=== PATIENT | female | born 1935 | race American Indian/Alaskan Native ===

== ENCOUNTER 2017-06-30 00:44 | Inpatient (IN) | payer MEDICARE ==
[2017-06-30 01:55] LABS: BUN/Creatinine Ratio 11; Blood Urea Nitrogen 8 mg/dL (7-17); Calcium 8.7 mg/dL (8.4-10.2); Hemolysis Index 10
[2017-06-30] MEDS ORDERED: NACL 0.9% 1000 ML 1,000 ML IV ONE (01:58)
[2017-06-30] MEDS ORDERED: K-DUR PO ONE (01:59)
[2017-06-30 02:13] LABS: Basophils % (Auto) 0.5 % (0.0-1.8); Eosinophils % (Auto) 0.5 % (0.0-4.3); Hematocrit 54.1 % (30.3-42.9); Hemoglobin 17.2 gm/dl (10.1-14.3); Lymphocytes # (Auto) 2.1 K/mm3 (1.2-5.4); Lymphocytes % (Auto) 25.2 % (13.4-35.0); Mean Corpuscular HGB Conc 32 % (30-34); Mean Corpuscular Hemoglobin 29 pg (28-32); Mean Corpuscular Volume 92 fl (79-97); Monocytes # (Auto) 0.5 K/mm3 (0.0-0.8); Monocytes % (Auto) 6.1 % (0.0-7.3); Platelet Count 141 K/mm3 (140-440); Red Cell Distribution Width 15.4 % (13.2-15.2)
[2017-06-30 02:38] LABS: Bilirubin,Urine NEG (Negative); Blood,Urine NEG (Negative); Color,Urine Straw (Yellow); Nitrite,Urine NEG (Negative); Protein,Urine <15 mg/dL mg/dL (Negative); Urobilinogen,Urine < 2.0 mg/dL (<2.0)
--- NOTE | 2017-06-30 02:45 | Emergency Department Report ---
ED General Adult HPI - General Chief complaint: Hypoglycemia Stated complaint: LOW BLOOD GLUCOSE Time Seen by Provider: 06/30/17 01:51 Source: EMS Mode of arrival: Stretcher Limitations: No Limitations - History of Present Illness Initial comments: 81 year old female with a past medical history diabetes and hypertension presents to the hospital with the patient below glucose 2 today. Patient she had a low glucose at 2:30 PM today. EMS came to the home, Glucose was initially 24 and improved after 25 mg of D50 to 2:31 and therefore patient elected not to comment to the hospital. This evening patient had a repeat episode of alteration in mental status and hypoglycemia. Patient initially was staring off and having difficulty communicating before she became completely unresponsive. Glucose was 30 at home. Patient received an amp of D50 and diamond to 61. Blood glucose 90 in triage. Family states patient has been eating appropriately and typically does not eat much. She did suffer from a stomach virus last week ( multiple family members have similar symptoms). She has not quite been completely feeling well since. No compressive fever, chest pain, shortness of breath, nausea, vomiting, diarrhea. Mild dysuria noted this morning. Patient takes glipizide 5 mg extended release every morning for diabetes. - Related Data Home Medications Medication Instructions Recorded Confirmed Last Taken Amlodipine Besylate/Benazepril 1 each PO DAILY 06/30/17 06/30/17 Unknown [Amlodipine-Benazepril 10-20 mg] Clonidine HCl [Kapvay] 0.1 mg PO QHS 06/30/17 06/30/17 Unknown Rosuvastatin Calcium 10 mg PO QHS 06/30/17 06/30/17 Unknown glipiZIDE [glipiZIDE ER] 5 mg PO QAM 06/30/17 06/30/17 Unknown Allergies Allergy/AdvReac Type Severity Reaction Status Date / Time No Known Allergies Allergy Unverified 06/30/17 01:02 ED Review of Systems ROS: Stated complaint: LOW BLOOD GLUCOSE Other details as noted in HPI Comment: All other systems reviewed and negative Other: Constitutional: No fevers chills or weight loss Eyes: No eye pain visual changes or discharge ENT: No ear pain or throat pain Neck: Denies pain Respiratory: Denies cough wheezing shortness of breath Cardiovascular: Denies chest pain, palpitations, syncope GI: Denies abdominal pain, nausea, vomiting, diarrhea : Denies dysuria Musculoskeletal: Denies back pain Skin: Denies rash, lesions, erythema Neurologic: Denies headache, numbness, weakness Psychiatric: Denies suicidal ideation, hallucinations ED Past Medical Hx - Past Medical History Previous Medical History?: Yes Hx Hypertension: Yes Hx Diabetes: Yes Additional medical history: cataracts - Surgical History Past Surgical History?: No - Social History Smoking Status: Current Every Day Smoker Substance Use Type: None - Medications Home Medications: Home Medications Medication Instructions Recorded Confirmed Last Taken Type Amlodipine Besylate/Benazepril 1 each PO DAILY 06/30/17 06/30/17 Unknown History [Amlodipine-Benazepril 10-20 mg] Clonidine HCl [Kapvay] 0.1 mg PO QHS 06/30/17 06/30/17 Unknown History Rosuvastatin Calcium 10 mg PO QHS 06/30/17 06/30/17 Unknown History glipiZIDE [glipiZIDE ER] 5 mg PO QAM 06/30/17 06/30/17 Unknown History ED Physical Exam - General Limitations: No Limitations - Other Other exam information: General: No limitations, patient is alert in no acute distress Head exam: Atraumatic, normocephalic Eyes exam: Normal appearance, pupils equal reactive to light, extraocular movements intact ENT: Moist mucous membrane, normal oropharynx Neck exam: Normal inspection, full range of motion, no meningismus nontender Respiratory exam: Clear to auscultation bilateral, no wheezes, rales, crackles Cardiovascular: Normal rate and rhythm, normal heart sounds Abdomen: Soft, nondistended, and nontender, with normal bowel sounds, no rebound, or guarding Extremity: Full range of motion normal inspection no deformity Back: Normal Inspection, full range of motion, no tenderness Neurologic: Alert, oriented x3, cranial nerves intact, no motor or sensory deficit Psychiatric: normal affect, normal mood Skin: Warm, dry, intact ED Course Vital Signs 06/30/17 01:26 Temperature 97.7 F Pulse Rate 75 Respiratory 25 H Rate Blood Pressure 141/66 [Left] O2 Sat by Pulse 100 Oximetry - Reevaluation(s) Reevaluation #1: 06/30/17 03:37 Glucose rechecked at this time and currently 46 even after receiving previous D 50 and eating a half of a peanut butter sandwich. Patient is alert and oriented. 1 amp of D50 and patient discharged to eat the other half of the sandwich and given juice. Hospitalist informed and D5 half-normal ordered a 75 mL per hour per his ED Medical Decision Making - Lab Data Result diagrams: 06/30/17 01:17 06/30/17 01:17 - Medical Decision Making hypoglycemia x 2 today oral glipized 5mg q am glucose dropped again after d50 and food intake in ed no signs of infection d50 given in ed, d5 1/2 NS initiated will admit for obs and possible medication adjustment hypokalemia potassium supplemented - Differential Diagnosis medication reaction, infection, poor by mouth intake Critical Care Time: No Critical care attestation.: If time is entered above; I have spent that time in minutes in the direct care of this critically ill patient, excluding procedure time. ED Disposition Clinical Impression: Hypoglycemia, Diabetes mellitus, type 2, Hypokalemia Disposition: OP ADMIT IP TO THIS HOSP Is pt being admited?: Yes Condition: Stable Time of Disposition: 03:32 (Dr Rock/hosp)
[2017-06-30] MEDS ORDERED: D50W (25GM) Syringe IV ONE (03:36)
[2017-06-30] MEDS ORDERED: D5/0.45NS 1,000 ML IV SCH (04:00)
--- NOTE | 2017-06-30 05:04 | History and Physical Report ---
History of Present Illness Date of examination: 06/30/17 Date of admission: 06/30/17 03:34 Chief complaint: Low blood sugar History of present illness: 81-year-old -Maced[place] female with past medical history significant for diabetes mellitus, hyperlipidemia, hypertension presented to the emergency department his complaints of low blood sugar. Patient has been on glipizide for diabetes mellitus. Patient was feeling tired around 2:30 PM yesterday and EMS was called and her blood sugar was 26 and was given dextrose and declined to come to the hospital. Later the pateint was unresponsive and EMS was called again and her blood sugar was low and given dextrose and brought to the ED she was given dextrose in the ED. Repeat blood sugar was 46. Then decided to admit to the medical floor. She is on D5 / NS. Accu check every hours. patient need to be monitored 24-48hrs until the sulfonylurea effect wears off. REVIEW OF SYSTEMS: GENERAL: no weight change, + fatigue, no fever HEAD: no head ache EYES: no blurry vision, no acute visual loss EARS: no hearing loss, no discharge, no earache NOSE: no stuffiness, no sneezing, no discharge MOUTH, THROAT AND NECK: no bleeding gums, no sore throat, no swollen neck CARDIAC: no palpitations, no dyspnea on exertion, no orthopnea, no PND, no edema , no chest pain RESPIRATORY: no shortness of breath, no wheeze, no cough, no sputum, no hemoptysis, no asthma GI: no decreased appetite, no nausea, no vomiting, no dysphagia, no diarrhea, no constipation, no abdominal pain URINARY: no change in frequency, no urgency, no polyuria, no hematuria, no incontinence MUSCULOSKELETAL: no muscle weakness, no pain, no joint stiffness NEUROLOGIC: Passed out. HEMATOLOGIC: no anemia, no easy bruising SKIN: no rashes ENDOCRINE: no heat/cold intolerance, no polyuria, no polydipsia, no thyroid problems, + diabetes PSYCHIATRIC: no anxiety, no depression, no suicidal ideations Past History Past Medical History: diabetes, hypertension, hyperlipidemia Past Surgical History: Social history: smoking (3-4 cigarettes a day), full code. denies: alcohol abuse, prescription drug abuse, IV drug use Family history: diabetes (mother), stroke (Father) Medications and Allergies Allergies Allergy/AdvReac Type Severity Reaction Status Date / Time No Known Allergies Allergy Verified 06/30/17 03:39 Home Medications Medication Instructions Recorded Confirmed Last Taken Type Amlodipine Besylate/Benazepril 1 each PO DAILY 06/30/17 06/30/17 Unknown History [Amlodipine-Benazepril 10-20 mg] Clonidine HCl [Kapvay] 0.1 mg PO QHS 06/30/17 06/30/17 Unknown History Rosuvastatin Calcium 10 mg PO QHS 06/30/17 06/30/17 Unknown History glipiZIDE [glipiZIDE ER] 5 mg PO QAM 06/30/17 06/30/17 Unknown History Active Meds: Active Medications Dextrose/Sodium Chloride (D5/0.45ns) 1,000 mls @ 75 mls/hr IV DIRECT KRISTA Last Admin: 06/30/17 04:04 Dose: 75 mls/hr Miscellaneous Medication (Rosuvastatin Calcium [Rosuvastatin Calcium]) 10 mg PO QHS KRISTA Exam - Physical Exam Narrative exam: Not in cardiopulmonary distress. The patient is obese. Vital signs as documented. Head exam is unremarkable. No scleral icterus . Neck is without jugular venous distension, thyromegaly, or carotid bruits. Lungs are clear to auscultation. Cardiac exam reveals regular rate and Rhythm. Abdominal exam reveals normal bowel sounds, no masses, no organomegaly and no aortic enlargement. Extremities are nonedematous and both femoral and pedal pulses are normal. [employer]: Alert and oriented 3. No focal weakness. - Constitutional Vitals: Temp Pulse Resp BP Pulse Ox 97.7 F 85 29 H 117/54 100 06/30/17 01:26 06/30/17 04:01 06/30/17 04:01 06/30/17 04:01 06/30/17 01:26 Results - Labs CBC & Chem 7: 06/30/17 01:17 06/30/17 01:17 Labs: Laboratory Last Values WBC 8.2 K/mm3 (4.5-11.0) 06/30/17 01:17 RBC 5.90 M/mm3 (3.65-5.03) H 06/30/17 01:17 Hgb 17.2 gm/dl (10.1-14.3) H 06/30/17 01:17 Hct 54.1 % (30.3-42.9) H 06/30/17 01:17 MCV 92 fl (79-97) 06/30/17 01:17 MCH 29 pg (28-32) 06/30/17 01:17 MCHC 32 % (30-34) 06/30/17 01:17 RDW 15.4 % (13.2-15.2) H 06/30/17 01:17 Plt Count 141 K/mm3 (140-440) 06/30/17 01:17 Lymph % (Auto) 25.2 % (13.4-35.0) 06/30/17 01:17 [place] % (Auto) 6.1 % (0.0-7.3) 06/30/17 01:17 Eos % (Auto) 0.5 % (0.0-4.3) 06/30/17 01:17 Baso % (Auto) 0.5 % (0.0-1.8) 06/30/17 01:17 Lymph # 2.1 K/mm3 (1.2-5.4) 06/30/17 01:17 [place] # 0.5 K/mm3 (0.0-0.8) 06/30/17 01:17 Eos # 0.0 K/mm3 (0.0-0.4) 06/30/17 01:17 Baso # 0.0 K/mm3 (0.0-0.1) 06/30/17 01:17 Seg Neutrophils % 67.7 % (40.0-70.0) 06/30/17 01:17 Seg Neutrophils # 5.5 K/mm3 (1.8-7.7) 06/30/17 01:17 Sodium 141 mmol/L (137-145) 06/30/17 01:17 Potassium 3.3 mmol/L (3.6-5.0) L 06/30/17 01:17 Chloride 101.6 mmol/L (98-107) 06/30/17 01:17 Carbon Dioxide 27 mmol/L (22-30) 06/30/17 01:17 Anion Gap 16 mmol/L 06/30/17 01:17 BUN 8 mg/dL (7-17) 06/30/17 01:17 Creatinine 0.7 mg/dL (0.7-1.2) 06/30/17 01:17 Estimated GFR > 60 ml/min 06/30/17 01:17 BUN/Creatinine Ratio 11 % 06/30/17 01:17 Glucose 74 mg/dL (65-100) 06/30/17 01:17 POC Glucose 97 (70-105) 06/30/17 01:03 Calcium 8.7 mg/dL (8.4-10.2) 06/30/17 01:17 Urine Color Straw (Yellow) 06/30/17 02:07 Urine Turbidity Clear (Clear) 06/30/17 02:07 Urine pH 7.0 (5.0-7.0) 06/30/17 02:07 Ur Specific [place] 1.005 (1.003-1.030) 06/30/17 02:07 Urine Protein <15 mg/dl mg/dL (Negative) 06/30/17 02:07 Urine Glucose (UA) 150 mg/dL (Negative) 06/30/17 02:07 Urine Ketones Neg mg/dL (Negative) 06/30/17 02:07 Urine Blood Neg (Negative) 06/30/17 02:07 Urine Nitrite Neg (Negative) 06/30/17 02:07 Urine Bilirubin Neg (Negative) 06/30/17 02:07 Urine Urobilinogen < 2.0 mg/dL (<2.0) 06/30/17 02:07 Ur Leukocyte Esterase Tr (Negative) 06/30/17 02:07 Urine WBC (Auto) 3.0 /HPF (0.0-6.0) 06/30/17 02:07 Urine RBC (Auto) 1.0 /HPF (0.0-6.0) 06/30/17 02:07 U Epithel Cells (Auto) < 1.0 /HPF (0-13.0) 06/30/17 02:07 Assessment and Plan Assessment and plan: Sulfonylurea-induced hypoglycemia - Held glipizide - D5 1/2 NS - Accu-Chek every hour - We'll monitor for 24-48 hours Hyperlipidemia - Continue home medication Hypertension - Blood pressure is currently within normal limits - Held BP for now and resume as needed DVT prophylaxis - On heparin Disposition - Admit to medical floor Advance Directives: Yes VTE prophylaxis?: Chemical Plan of care discussed with patient/family: Yes
--- NOTE | 2017-06-30 13:48 | Progress Note ---
<SILKE KOLB - Last Filed: 06/30/17 13:48> Assessment and Plan Assessment and plan: 81-year-old -Thai female with past medical history significant for diabetes mellitus, hyperlipidemia, hypertension presented to the emergency department his complaints of low blood sugar. Patient has been on glipizide for diabetes mellitus. Patient was feeling tired around 2:30 PM yesterday and EMS was called and her blood sugar was 26 and was given dextrose and declined to come to the hospital. Later the pateint was unresponsive and EMS was called again and her blood sugar was low and given dextrose and brought to the ED she was given dextrose in the ED. Repeat blood sugar was 46. Then decided to admit to the medical floor. She is on D5 1/2 NS. Sulfonylurea-induced hypoglycemia - Hold glipizide - D5 1/2 NS - Accu-Chek every hour - We'll monitor for 24-48 hours Hyperlipidemia - Continue home medication Hypertension - Blood pressure is currently within normal limits - Resume BP medication as needed Hypokalemia Repleted, will continue to monitor DVT prophylaxis - On heparin Disposition Continue inpatient care Hospitalist Physical - Constitutional Vitals: Temp Pulse Resp BP Pulse Ox 98.6 F 65 20 131/63 100 06/30/17 09:45 06/30/17 09:00 06/30/17 09:45 06/30/17 09:45 06/30/17 01:26 Results - Labs CBC & Chem 7: 06/30/17 01:17 06/30/17 01:17 Labs: Laboratory Last Values WBC 8.2 K/mm3 (4.5-11.0) 06/30/17 01:17 RBC 5.90 M/mm3 (3.65-5.03) H 06/30/17 01:17 Hgb 17.2 gm/dl (10.1-14.3) H 06/30/17 01:17 Hct 54.1 % (30.3-42.9) H 06/30/17 01:17 MCV 92 fl (79-97) 06/30/17 01:17 MCH 29 pg (28-32) 06/30/17 01:17 MCHC 32 % (30-34) 06/30/17 01:17 RDW 15.4 % (13.2-15.2) H 06/30/17 01:17 Plt Count 141 K/mm3 (140-440) 06/30/17 01:17 Lymph % (Auto) 25.2 % (13.4-35.0) 06/30/17 01:17 [place] % (Auto) 6.1 % (0.0-7.3) 06/30/17 01:17 Eos % (Auto) 0.5 % (0.0-4.3) 06/30/17 01:17 Baso % (Auto) 0.5 % (0.0-1.8) 06/30/17 01:17 Lymph # 2.1 K/mm3 (1.2-5.4) 06/30/17 01:17 [place] # 0.5 K/mm3 (0.0-0.8) 06/30/17 01:17 Eos # 0.0 K/mm3 (0.0-0.4) 06/30/17 01:17 Baso # 0.0 K/mm3 (0.0-0.1) 06/30/17 01:17 Seg Neutrophils % 67.7 % (40.0-70.0) 06/30/17 01:17 Seg Neutrophils # 5.5 K/mm3 (1.8-7.7) 06/30/17 01:17 Sodium 141 mmol/L (137-145) 06/30/17 01:17 Potassium 3.3 mmol/L (3.6-5.0) L 06/30/17 01:17 Chloride 101.6 mmol/L (98-107) 06/30/17 01:17 Carbon Dioxide 27 mmol/L (22-30) 06/30/17 01:17 Anion Gap 16 mmol/L 06/30/17 01:17 BUN 8 mg/dL (7-17) 06/30/17 01:17 Creatinine 0.7 mg/dL (0.7-1.2) 06/30/17 01:17 Estimated GFR > 60 ml/min 06/30/17 01:17 BUN/Creatinine Ratio 11 % 06/30/17 01:17 Glucose 74 mg/dL (65-100) 06/30/17 01:17 POC Glucose 97 (70-105) 06/30/17 01:03 Calcium 8.7 mg/dL (8.4-10.2) 06/30/17 01:17 Urine Color Straw (Yellow) 06/30/17 02:07 Urine Turbidity Clear (Clear) 06/30/17 02:07 Urine pH 7.0 (5.0-7.0) 06/30/17 02:07 Ur Specific [place] 1.005 (1.003-1.030) 06/30/17 02:07 Urine Protein <15 mg/dl mg/dL (Negative) 06/30/17 02:07 Urine Glucose (UA) 150 mg/dL (Negative) 06/30/17 02:07 Urine Ketones Neg mg/dL (Negative) 06/30/17 02:07 Urine Blood Neg (Negative) 06/30/17 02:07 Urine Nitrite Neg (Negative) 06/30/17 02:07 Urine Bilirubin Neg (Negative) 06/30/17 02:07 Urine Urobilinogen < 2.0 mg/dL (<2.0) 06/30/17 02:07 Ur Leukocyte Esterase Tr (Negative) 06/30/17 02:07 Urine WBC (Auto) 3.0 /HPF (0.0-6.0) 06/30/17 02:07 Urine RBC (Auto) 1.0 /HPF (0.0-6.0) 06/30/17 02:07 U Epithel Cells (Auto) < 1.0 /HPF (0-13.0) 06/30/17 02:07 <JOSE JUAN PUGA R - Last Filed: 06/30/17 15:27> Assessment and Plan Assessment and plan: I saw and evaluated the patient. I agree with the findings and the plan of care as documented in the Nurse Practitioner's~note, with the following corrections and additions. Hospitalist Physical - Constitutional Vitals: Temp Pulse Resp BP Pulse Ox 98.6 F 65 20 131/63 100 06/30/17 09:45 06/30/17 09:00 06/30/17 09:45 06/30/17 09:45 06/30/17 01:26 Results - Labs CBC & Chem 7: 06/30/17 01:17 06/30/17 01:17 Labs: Laboratory Last Values WBC 8.2 K/mm3 (4.5-11.0) 06/30/17 01:17 RBC 5.90 M/mm3 (3.65-5.03) H 06/30/17 01:17 Hgb 17.2 gm/dl (10.1-14.3) H 06/30/17 01:17 Hct 54.1 % (30.3-42.9) H 06/30/17 01:17 MCV 92 fl (79-97) 06/30/17 01:17 MCH 29 pg (28-32) 06/30/17 01:17 MCHC 32 % (30-34) 06/30/17 01:17 RDW 15.4 % (13.2-15.2) H 06/30/17 01:17 Plt Count 141 K/mm3 (140-440) 06/30/17 01:17 Lymph % (Auto) 25.2 % (13.4-35.0) 06/30/17 01:17 [place] % (Auto) 6.1 % (0.0-7.3) 06/30/17 01:17 Eos % (Auto) 0.5 % (0.0-4.3) 06/30/17 01:17 Baso % (Auto) 0.5 % (0.0-1.8) 06/30/17 01:17 Lymph # 2.1 K/mm3 (1.2-5.4) 06/30/17 01:17 [place] # 0.5 K/mm3 (0.0-0.8) 06/30/17 01:17 Eos # 0.0 K/mm3 (0.0-0.4) 06/30/17 01:17 Baso # 0.0 K/mm3 (0.0-0.1) 06/30/17 01:17 Seg Neutrophils % 67.7 % (40.0-70.0) 06/30/17 01:17 Seg Neutrophils # 5.5 K/mm3 (1.8-7.7) 06/30/17 01:17 Sodium 141 mmol/L (137-145) 06/30/17 01:17 Potassium 3.3 mmol/L (3.6-5.0) L 06/30/17 01:17 Chloride 101.6 mmol/L (98-107) 06/30/17 01:17 Carbon Dioxide 27 mmol/L (22-30) 06/30/17 01:17 Anion Gap 16 mmol/L 06/30/17 01:17 BUN 8 mg/dL (7-17) 06/30/17 01:17 Creatinine 0.7 mg/dL (0.7-1.2) 06/30/17 01:17 Estimated GFR > 60 ml/min 06/30/17 01:17 BUN/Creatinine Ratio 11 % 06/30/17 01:17 Glucose 74 mg/dL (65-100) 06/30/17 01:17 POC Glucose 97 (70-105) 06/30/17 01:03 Calcium 8.7 mg/dL (8.4-10.2) 06/30/17 01:17 Urine Color Straw (Yellow) 06/30/17 02:07 Urine Turbidity Clear (Clear) 06/30/17 02:07 Urine pH 7.0 (5.0-7.0) 06/30/17 02:07 Ur Specific [place] 1.005 (1.003-1.030) 06/30/17 02:07 Urine Protein <15 mg/dl mg/dL (Negative) 06/30/17 02:07 Urine Glucose (UA) 150 mg/dL (Negative) 06/30/17 02:07 Urine Ketones Neg mg/dL (Negative) 06/30/17 02:07 Urine Blood Neg (Negative) 06/30/17 02:07 Urine Nitrite Neg (Negative) 06/30/17 02:07 Urine Bilirubin Neg (Negative) 06/30/17 02:07 Urine Urobilinogen < 2.0 mg/dL (<2.0) 06/30/17 02:07 Ur Leukocyte Esterase Tr (Negative) 06/30/17 02:07 Urine WBC (Auto) 3.0 /HPF (0.0-6.0) 06/30/17 02:07 Urine RBC (Auto) 1.0 /HPF (0.0-6.0) 06/30/17 02:07 U Epithel Cells (Auto) < 1.0 /HPF (0-13.0) 06/30/17 02:07
[2017-06-30] MEDS: NACL 0.9% 1000 ML 1,000 ML IV SCH (17:53)
[2017-06-30] MEDS ORDERED: NON-FORMULARY (Rosuvastatin Calcium [Rosuvastatin Calcium] 10 MG) PO SCH (22:00)
[2017-07-01] MEDS: NACL 0.9% 1000 ML 1,000 ML IV SCH (03:31)
[2017-07-01 05:44] LABS: BUN/Creatinine Ratio 10; Blood Urea Nitrogen 6 mg/dL (7-17); Calcium 8.3 mg/dL (8.4-10.2); Hemolysis Index 130
[2017-07-01 07:47] VITALS: BP 117/59
--- NOTE | 2017-07-01 10:30 | Discharge Summary ---
Providers - Providers Date of Admission: 06/30/17 03:34 Date of discharge: 07/01/17 Attending physician: JOSE JUAN PUGA Primary care physician: DILCIA VELASCO Hospitalization Reason for admission: hypoglycemia Condition: Stable Hospital course: 81-year-old -[place] female with past medical history significant for diabetes mellitus, hyperlipidemia, hypertension presented to the emergency department with complaints of low blood sugar. Patient has been on glipizide for diabetes mellitus. Patient was feeling tired around 2:30 PM the day prior to admission and EMS was called and her blood sugar was 26 and was given dextrose and declined to come to the hospital. Later, the pateint was unresponsive and EMS was called again and her blood sugar was low and given dextrose and brought to the ED she was given dextrose in the ED. Repeat blood sugar was 46. The patient was admitted to the medical floor with diagnosis of metabolic encephalopathy, Whipple's triad and hypoglycemia.. The patient was placed on on D5 1/2 NS. Accu check were monitored and patient's blood sugar stabilized. The patient was monitored 24-48hrs off of the sulfonylurea. The patient's kidney function appeared to be within normal limits. The patient will be discharged home with half the dose of her previous medication. She should follow with her PCP. Dedicated discharge time 35 minutes. Disposition: - TO HOME OR SELFCARE Time spent for discharge: 35 - Discharge Diagnoses (1) Diabetes mellitus, type 2 Status: Acute (2) Hypoglycemia Status: Acute Core Measure Documentation - Palliative Care Palliative Care/ Comfort Measures: Not Applicable - Core Measures Any of the following diagnoses?: none Exam - Constitutional Vitals: Temp Pulse Resp BP Pulse Ox 99.2 F 80 20 117/59 100 07/01/17 07:10 07/01/17 07:10 07/01/17 07:10 07/01/17 07:10 07/01/17 07:10 General appearance: Present: no acute distress, well-nourished - EENT Eyes: Present: PERRL ENT: hearing intact, clear oral mucosa - Neck Neck: Present: supple, normal ROM - Respiratory Respiratory effort: normal Respiratory: bilateral: CTA - Cardiovascular Heart Sounds: Present: S1 & S2. Absent: rub, click - Extremities Extremities: pulses symmetrical, No edema Peripheral Pulses: within normal limits - Abdominal General gastrointestinal: Present: soft, non-tender, non-distended, normal bowel sounds Female genitourinary: Present: normal - Integumentary Integumentary: Present: clear, warm, dry - Musculoskeletal Musculoskeletal: gait normal, strength equal bilaterally - Psychiatric Psychiatric: appropriate mood/affect, intact judgment & insight - Neurologic Neurologic: CNII-XII intact, moves all extremities Plan Activity: no restrictions Weight Bearing Status: Full Weight Bearing Diet: diabetic Follow up with: DILCIA VELASCO MD [Primary Care Provider] - 3-5 Days Prescriptions: glipiZIDE [Glipizide] 2.5 mg PO DAILY #30 tablet
== END 2017-07-01 14:10 | disposition home or self-care (01) | DRG 637 ==
LOC: ED 00:44 → 3A 03:34 → 2B-ACE 06:34
PROVIDERS: ADMIT Internal Medicine; ATTEND Hospitalist
DX: E11.649 Type 2 diabetes mellitus with hypoglycemia without coma (principal); G93.41 Metabolic encephalopathy; T38.3X5A Adverse effect of insulin and oral hypoglycemic [antidiabetic] drugs, initial encounter; E78.5 Hyperlipidemia, unspecified; I10 Essential (primary) hypertension; Z98.49 Cataract extraction status, unspecified eye; F17.200 Nicotine dependence, unspecified, uncomplicated; E11.9 Type 2 diabetes mellitus without complications; E87.6 Hypokalemia; Y92.9 Unspecified place or not applicable
CPT/HCPCS: 36415; 80048; 81001; 82962; 85025; 96361; 96374; A9270-GY; J7030

== ENCOUNTER 2017-10-09 19:24 | Emergency (ER) | payer MEDICARE ==
[2017-10-09 20:07] LABS: Hematocrit 40.1 % (30.3-42.9); Hemoglobin 13.4 gm/dl (10.1-14.3); Mean Corpuscular HGB Conc 33 % (30-34); Mean Corpuscular Hemoglobin 29 pg (28-32); Mean Corpuscular Volume 88 fl (79-97); Platelet Count 260 K/mm3 (140-440); Red Blood Count 4.54 M/mm3 (3.65-5.03); Red Cell Distribution Width 15.1 % (13.2-15.2)
[2017-10-09 20:26] LABS: BUN/Creatinine Ratio 10; Blood Urea Nitrogen 7 mg/dL (7-17); Calcium 9.3 mg/dL (8.4-10.2); Hemolysis Index 52
--- NOTE | 2017-10-09 21:35 | XRay Report ---
FINAL REPORT EXAM: XR CHEST ROUTINE 2V HISTORY: fever,productive cough TECHNIQUE: Two views of the chest Comparison: None FINDINGS: Heart size is normal. Lungs are hyperlucent. There is a well-circumscribed 1.3 centimeter density in the left lung base which may represent a prominent nipple. There is marked levoscoliosis with ankylosis of the thoracic vertebral bodies. There is no definite focal infiltrate in the lower lobes. Right suprahilar/paratracheal distortion, question subtle infiltrate in this location. The bones are osteopenic. Costophrenic angles are sharp. IMPRESSION: Question right paratracheal opacity of pneumonia versus anatomic distortion from the significant levoscoliosis. Probable prominent nipple shadow left lung base. Lungs are mildly hyperlucent.
[2017-10-09] MEDS ORDERED: TYLENOL PO ONE (21:40)
[2017-10-09] MEDS ORDERED: ROBITUSSIN AC PO ONE (21:40)
--- NOTE | 2017-10-09 21:43 | Emergency Department Report ---
HPI - General Chief Complaint: Upper Respiratory Infection Time Seen by Provider: 10/09/17 21:34 - HPI HPI: 82-year-old female presents to the emergency department from home with complaint of some shortness of breath that worsens with exertion and a productive cough that has been going on for "months." He finally came in today as she was feeling slightly worse and because she was previously stubborn , per her daughter. She denies any chest pain or "any pain anywhere." She has a past medical history of diabetes and hypertension, cataracts and glaucoma. She has a tobacco smoker but denies any illicit drug use. She has not taken anything for her symptoms prior to presentation. She has a primary care physician in [place] but has not seen them in her symptoms. No recent travel or sick contacts at home. ED Past Medical Hx - Past Medical History Hx Hypertension: Yes Hx Diabetes: Yes Additional medical history: cataracts,glucoma,elevated cholesterol - Surgical History Additional Surgical History: cataract implants, - Social History Smoking Status: Current Every Day Smoker Substance Use Type: None - Medications Home Medications: Home Medications Medication Instructions Recorded Confirmed Last Taken Type Amlodipine Besylate/Benazepril 1 each PO DAILY 06/30/17 06/30/17 Unknown History [Amlodipine-Benazepril 10-20 mg] Clonidine HCl [Kapvay] 0.1 mg PO QHS 06/30/17 06/30/17 Unknown History Atorvastatin [Lipitor] 1 tab PO 10/09/17 Unknown History Clopidogrel [Plavix] 75 mg PO QDAY 10/09/17 10/09/17 Unknown History QUEtiapine [SEROquel] 25 mg PO 10/09/17 Unknown History ALBUTEROL Inhaler [ProAir HFA 2 puff IH QID PRN #1 inhalation 10/10/17 Unknown Rx Inhaler] Azithromycin [Zithromax Z-BROCK] 250 mg PO DAILY #6 tab 10/10/17 Unknown Rx Benzonatate [Tessalon Perles] 100 mg PO Q8HR PRN #20 capsule 10/10/17 Unknown Rx predniSONE [Deltasone] 20 mg PO BID #8 tab 10/10/17 Unknown Rx ED Review of Systems ROS: Stated complaint: SOB,COUGH Other details as noted in HPI Comment: All other systems reviewed and negative Constitutional: fever. denies: chills Eyes: denies: eye pain, eye discharge, vision change ENT: denies: ear pain, throat pain Respiratory: cough, shortness of breath, SOB with exertion Cardiovascular: denies: chest pain, edema Gastrointestinal: denies: abdominal pain, nausea, diarrhea Genitourinary: denies: urgency, dysuria, discharge Musculoskeletal: denies: back pain, joint swelling, arthralgia Skin: denies: rash, lesions Neurological: denies: headache, weakness, paresthesias Physical Exam - Physical Exam Vital Signs: Vital Signs 10/09/17 10/09/17 19:26 19:33 Temperature 100.3 F H 100.3 F H Pulse Rate 86 88 Respiratory 18 20 Rate Blood Pressure 159/76 159/76 O2 Sat by Pulse 95 Oximetry Physical Exam: GENERAL: The patient is well-developed well-nourished. HENT: Normocephalic. Atraumatic. Patient has moist mucous membranes. EYES: Extraocular motions are intact. Pupils equal reactive to light bilaterally. NECK: Supple. Trachea is midline. CHEST/LUNGS: Mild wheezing that the chest. No tachypnea or accessory muscle use. There is a wheezy dry cough heard during examination. There is no respiratory distress noted. HEART/CARDIOVASCULAR: Regular. There is no tachycardia. There is no murmur. ABDOMEN: Abdomen is soft, nontender. Patient has normal bowel sounds. There is no abdominal distention. SKIN: Skin is warm and dry. NEURO: The patient is awake, alert, and oriented. The patient is cooperative. The patient has no focal neurologic deficits. The patient has normal speech. MUSCULOSKELETAL: There is no tenderness or deformity. There is no limitation range of motion. There is no evidence of acute injury. ED Course Vital Signs 10/09/17 10/09/17 19:26 19:33 Temperature 100.3 F H 100.3 F H Pulse Rate 86 88 Respiratory 18 20 Rate Blood Pressure 159/76 159/76 O2 Sat by Pulse 95 Oximetry ED Medical Decision Making - Lab Data Result diagrams: 10/09/17 19:45 10/09/17 19:45 - Radiology Data Radiology results: report reviewed EXAM: XR CHEST ROUTINE 2V HISTORY: fever,productive cough TECHNIQUE: Two views of the chest Comparison: None FINDINGS: Heart size is normal. Lungs are hyperlucent. There is a well-circumscribed 1.3 centimeter density in the left lung base which may represent a prominent nipple. There is marked levoscoliosis with ankylosis of the thoracic vertebral bodies. There is no definite focal infiltrate in the lower lobes. Right suprahilar/paratracheal distortion, question subtle infiltrate in this location. The bones are osteopenic. Costophrenic angles are sharp. IMPRESSION: Question right paratracheal opacity of pneumonia versus anatomic distortion from the significant levoscoliosis. Probable prominent nipple shadow left lung base. Lungs are mildly hyperlucent. Transcribed By: NEVILLE Dictated By: FAUSTINA PAIZ Electronically Authenticated By: FAUSTINA PAIZ Signed Date/Time: 10/09/172128 PROCEDURE: NM LUNG SCAN PERF/VENT TECHNIQUE: Five mCi Tc-99m MAA was injected IV for pulmonary perfusion imaging in multiple projections. Fifteen mCi Xenon 133 gas was inhaled for pulmonary ventilation imaging in multiple projections. Injection site: RIGHT antecubital fossa. CPT 13779 HISTORY: SOB, elevated dimer COMPARISON: Chest radiograph 10/09/2017 FINDINGS: Perfusion: There is slightly diminished activity identified the lung bases bilaterally.. Ventilation: Normal activities. IMPRESSION: Low probability of pulmonary embolus Transcribed By: [facility] Dictated By: JEVON MADISON MD Electronically Authenticated By: JEVON MADISON MD Signed Date/Time: 10/10/17 0231 - Medical Decision Making History of female presents to the emergency department with complaint of some intermittent shortness of breath and a 3 month history of a cough. She is a tobacco smoker. She does not appear in any respiratory distress. There is some wheezing throughout the chest and a wheezing hacking cough. Labs were mostly unremarkable except for an elevated d-dimer. Negative troponin and the patient does not have any chest pain. No leukocytosis. Vital signs stable throughout her ED course. Chest x-ray shows some scoliosis and questionable infiltrate. Multiple IV lines blew so we were unable to get a CT angiography but a VQ scan was done and came back as low probability for pulmonary embolism. Patient appears to have some bronchitis. Since the x-ray showed a questionable infiltrate and she has the low-grade fever she will get some antibiotics. She also has been sent home with a few days of steroids, and albuterol inhaler and an antitussive medication. She has a primary care physician for follow-up and has been encouraged to see them in the next few days but return to the emergency Department with any worsening of her symptoms or any acute distress. She understands and agrees to the plan. - Differential Diagnosis bronchitis, pneumonia, viral syndrome, CHF, PE Critical Care Time: No Critical care attestation.: If time is entered above; I have spent that time in minutes in the direct care of this critically ill patient, excluding procedure time. ED Disposition Clinical Impression: Bronchitis, Tobacco use disorder Disposition: TO HOME OR SELFCARE Is pt being admited?: No Condition: Stable Instructions: Acute Bronchitis (ED) Additional Instructions: Please follow-up with your primary care physician in the next few days. Return to the emergency Department with any worsening of your symptoms or any acute distress. Please try and quit smoking. Prescriptions: ALBUTEROL Inhaler [ProAir HFA Inhaler] 2 puff IH QID PRN #1 inhalation PRN Reason: Shortness Of Breath Azithromycin [Zithromax Z-BROCK] 250 mg PO DAILY #6 tab Benzonatate [Tessalon Perles] 100 mg PO Q8HR PRN #20 capsule PRN Reason: Cough predniSONE [Deltasone] 20 mg PO BID #8 tab Time of Disposition: 03:40
[2017-10-09] MEDS ORDERED: DUONEB *Not for PRN Use IH ONE (23:27)
--- NOTE | 2017-10-10 03:29 | Nuclear Medicine Report ---
FINAL REPORT PROCEDURE: NM LUNG SCAN PERF/VENT TECHNIQUE: Five mCi Tc-99m MAA was injected IV for pulmonary perfusion imaging in multiple projections. Fifteen mCi Xenon 133 gas was inhaled for pulmonary ventilation imaging in multiple projections. Injection site: RIGHT antecubital fossa. CPT 51236 HISTORY: SOB, elevated dimer COMPARISON: Chest radiograph 10/09/2017 FINDINGS: Perfusion: There is slightly diminished activity identified the lung bases bilaterally.. Ventilation: Normal activities. IMPRESSION: Low probability of pulmonary embolus
[2017-10-10 04:00] VITALS: BP 145/67
== END 2017-10-10 04:01 | disposition home or self-care (01) ==
LOC: ED 19:24
DX: J40 Bronchitis, not specified as acute or chronic (principal); I10 Essential (primary) hypertension; E11.9 Type 2 diabetes mellitus without complications; F17.290 Nicotine dependence, other tobacco product, uncomplicated; E78.00 Pure hypercholesterolemia, unspecified
CPT/HCPCS: 36415; 71046; 78582; 80048; 83880; 85027; 85379; 94640; 96374; 99284; A9540; A9558; J2930

== ENCOUNTER 2018-09-13 07:47 | Day surgery (SDC) | payer MEDICARE ==
[~2018-09-13 07:47] MED LIST: TETRACAINE 0.5% OS SCH
[2018-09-13] MEDS: MYDRIACYL OS SCH ×4 (09:07→09:20)
[2018-09-13] MEDS: VIGAMOX OS SCH ×3 (09:08→09:20)
[2018-09-13] MEDS: AK-Dilate OS SCH ×3 (09:08→09:20)
[2018-09-13] MEDS ORDERED: VERSED ONE (09:42)
--- NOTE | 2018-09-13 09:49 | Anesthesia Consultation ---
Anesthesia Consult and Med Hx Date of service: 09/13/18 - Airway Anesthetic Teeth Evaluation: Dentures ROM Head & Neck: Adequate Mental/Hyoid Distance: Adequate Mallampati Class: Class III Intubation Access Assessment: Possibly Difficult - Pulmonary Exam CTA: Yes - Cardiac Exam Cardiac Exam: RRR - Pre-Operative Health Status ASA Pre-Surgery Classification: ASA3 Proposed Anesthetic Plan: MAC - Pulmonary Hx Smoking: Yes Hx Respiratory Symptoms: Yes (bronchitis; albuterol prn) Home Oxygen Therapy: No - Cardiovascular System Hx Hypertension: Yes Hx Heart Attack/AMI: No - Gastrointestinal Hx Gastroesophageal Reflux Disease: No - Endocrine Hx Non-Insulin Dependent Diabetes: Yes - Additional Comments Anesthesia Medical History Comments: No hx anesthetic complications.
--- NOTE | 2018-09-13 09:49 | Anesthesia Day of Surgery ---
Anesthesia Day of Surgery - Day of Surgery Patient Examined: Yes Patient H&P Reviewed: Yes Patient is NPO: Yes
[2018-09-13] MEDS ORDERED: SUBLIMAZE ONE (10:02)
[2018-09-13] MEDS ORDERED: PRED FORTE 1% OD NR (10:12)
--- NOTE | 2018-09-13 10:13 | Operative Report ---
Operative Report Operative Report: PATIENT'S NAME: DATE OF : DATE OF SURGERY: 09/13/2018 PREOPERATIVE DIAGNOSIS: Cataract left eye POSTOPERATIVE DIAGNOSIS: Same OPERATIVE PROCEDURE: Phacoemulsification with intraocular lens implantation, left eye SURGEON: Caro Trent M.D. OUTSIDE PLANT TECHNICIAN SURGEON: Ciro Lens: [id number] 23.5 D ANESTHESIA: Monitored anesthesia care in combination with topical and intracameral anesthesia because of the established specific risk of reflux, arrhythmias, or anxiety attacks associated with ocular manipulation, as well as the difficulty of the boy's adviser to manage such potentially catastrophic events while simultaneously attempting to complete the surgical procedure and was deemed necessary for the patient's safety to have an Logistics Technician present during the procedure whenever possible. An Logistics Technician was utilized to regulate the intravenous sedation of the patient so the patient was cooperative yet not asleep in order for the patient to successfully maintain fixation of the eye on the operating light of the microscope. COMPLICATIONS: No surgical complications No blood loss. ALLERGIES: No known drug allergies PROGNOSIS: Excellent INDICATIONS FOR SURGERY: The patient is undergoing surgery in the hopes of eliminating or improving these visual difficulties. PROCEDURE: After arriving at the surgery center, the patient was given topical anesthetic and dilating drops, as noted in the record. The patient was then taken into the operating room and given more anesthetic drops. The eyelids, lashes, and lid margins were scrubbed with Betadine solution, and the patient was draped. The Nurse Logistics Technician administered IV sedation and monitored the patient during the procedure. The eye was then fixated with a 0.12, and a stab incision was made in the peripheral clear cornea into the anterior chamber. This was made on my left side. Viscoelastic was next used to fill the anterior chamber. The eye was once again fixated with the 0.12 forceps and a keratome was used make an incision in clear cornea peripherally on my right hand side temporally. The capsule forceps were used to open the central anterior capsule and then make a continuous round capsulotomy. Hydrodissection was carried out utilizing a cannula and balanced salt solution to delineate the cortical material from the capsule and the nucleus from the cortical material. The phaco tip was introduced into the eye and used to remove the anterior cortical material in the area of the capsulotomy. Then the phaco tip was buried into the nucleus, and a chopping instrument was introduced into the eye and used to provide countertraction in the nucleus between this instrument and the phaco tip fracturing the nucleus. This procedure was repeated multiple times, providing multiple small segments of the lens, and then the phaco tip was used to remove each of these segments. An I/A tip was then used to remove the remaining cortex. The anterior chamber was refilled with viscoelastic. An one-piece, acrylic intraocular lens was then placed into an inserting cartridge. The tip of the inserting cartridge was introduced into the keratome incision and into the anterior chamber. The implant was gently advanced through the cartridge and into the eye, where it unfolded, and both haptics were placed in the capsular bag, where it centered nicely and appeared to be well fixated. After placement of the intraocular lens, the I~and~A handpiece was placed back into the eye and used to remove the viscoelastic, including viscoelastic that was behind the optic of the intraocular lens. The anterior chamber was then filled with balanced salt solution, and hydration of the wound was used to cause swelling of the wound and more appropriate watertight closure. When the wound was found to be firm, the patient was asked to comment on how bright the light was. If there was no light perception at all or if the light was substantially dimmer than during the rest of the surgery, the amount of fluid in the eye was decompressed to lower the intraocular pressure until the patient could see the bright light again. This was done to avoid any damage or decreased blood flow to the optic nerve. MEDICATIONS APPLIED AT END OF SURGERY: One drop of Pred Forte and Vigamox The patient was given a shield to wear at night and was instructed not to rub or push on the eye. DISCHARGE SUMMARY: The patient was released in stable condition. The patient and those with the patient were given a written sheet of postoperative instructions and counseling on any abnormal laboratory studies. The patient is to see us tomorrow for follow-up in the office and is to call immediately for any difficulties. Caro Trent M.D. Date
--- NOTE | 2018-09-13 10:13 | Short Stay Summary ---
Short Stay Documentation Date of service: 09/13/18 - History H&P: obtained from office - Allergies and Medications Current Medications: Allergies No Known Allergies Allergy (Verified 06/30/17 03:39) Home Medications Medication Instructions Recorded Confirmed Last Taken Type Amlodipine Besylate/Benazepril 1 each PO DAILY 06/30/17 09/13/18 09/12/18 08:00 History [Amlodipine-Benazepril 10-20 mg] Clonidine HCl [Kapvay] 0.1 mg PO QHS 06/30/17 09/13/18 09/12/18 21:00 History Atorvastatin [Lipitor] 1 tab PO HS 10/09/17 09/13/18 09/12/18 21:00 History Clopidogrel [Plavix] 75 mg PO QDAY 10/09/17 09/13/18 09/12/18 09:00 History QUEtiapine [SEROquel] 25 mg PO PRN PRN 10/09/17 09/13/18 09/12/18 21:00 History ALBUTEROL Inhaler (OR & NICU) 2 puff IH QID PRN #1 inhalation 10/10/17 09/13/18 09/13/18 09:30 Rx [ProAir HFA Inhaler] Azithromycin [Zithromax Z-BROCK] 250 mg PO DAILY #6 tab 10/10/17 09/13/18 09/12/18 08:00 Rx Benzonatate [Tessalon Perles] 100 mg PO Q8HR PRN #20 capsule 10/10/17 09/13/18 09/12/18 08:00 Rx predniSONE [Deltasone] 20 mg PO BID #8 tab 10/10/17 09/13/18 09/12/18 20:00 Rx Active Medications Acetazolamide (Diamox) 500 mg PO ONCE ONE Stop: 09/13/18 10:13 Moxifloxacin HCl (Vigamox) 1 drops OS Q5MIN KRISTA Stop: 09/13/18 23:59 Last Admin: 09/13/18 09:20 Dose: 1 drops Documented by: Phenylephrine HCl (Ak-Dilate) 1 drops OS Q5M KRISTA Stop: 09/13/18 23:59 Last Admin: 09/13/18 09:20 Dose: 1 drops Documented by: Prednisolone Acetate (Pred Forte 1%) 1 drops OD ONCE ONE Stop: 09/13/18 10:13 Tetracaine HCl (Tetracaine 0.5%) 1 drops OS Q5M KRISTA Stop: 09/13/18 23:59 Last Admin: 09/13/18 09:08 Dose: 1 drops Documented by: Tropicamide (Mydriacyl) 1 drops OS Q5MIN KRISTA Stop: 09/13/18 23:59 Last Admin: 09/13/18 09:20 Dose: 1 drops Documented by: - Brief post op/procedure progress note Date of procedure: 09/13/18 Pre-op diagnosis: left cataract Post-op diagnosis: same Procedure: Phacoemulsification with intraocular lens insertion left eye Anesthesia: MAC, local Surgeon: JACK OH Estimated blood loss: none Pathology: none Condition: stable - Disposition Condition at discharge: Good Disposition: [id number]-01 TO HOME OR SELFCARE - Discharge Diagnoses (1) Cortical age-related cataract of left eye Status: Resolved Short Stay Discharge Plan Follow up with: SINGH TOVAR MD [Primary Care Provider] - 7 Days
[2018-09-13] MEDS ORDERED: DIAMOX PO ONE (11:00)
--- NOTE | 2018-09-13 12:02 | Post Anesthesia Evaluation ---
- Post Anesthesia Evaluation Patient Participated: Yes Airway Patent: Yes Stable Respiratory Function: Yes Nausea/Vomiting: No Temp > 96.8F: Yes Pain Manageable: Yes Adequeate Hydration: Yes Anesthesia Complications: No
[2018-09-13 12:06] VITALS: BP 134/64
== END 2018-09-13 07:48 | disposition home or self-care (01) ==
LOC: OR 07:47
DX: E11.36 Type 2 diabetes mellitus with diabetic cataract (principal); H25.012 Cortical age-related cataract, left eye; I10 Essential (primary) hypertension; E11.649 Type 2 diabetes mellitus with hypoglycemia without coma; Z90.710 Acquired absence of both cervix and uterus; Z98.890 Other specified postprocedural states
CPT/HCPCS: 66984; 82962; J2250; J3010; V2632